=== PATIENT | female | born 1940 | race Caucasian/White ===

== ENCOUNTER → 2016-06-29 | Outpatient (CLI) | payer MEDICARE ==
[~2016-06-29] MED LIST: AMLO2.5T PO; HCTZ12.5T GT; KCL10CCR PO; LISI20TA PO; METO-272 PO
--- NOTE | 2016-06-30 13:49 | Diagnostic Imaging Report ---
Bilateral screening mammogram. The current study was also evaluated with a Computer Aided Detection (CAD) system. INDICATION: Screening. No current complaints stated on the questionnaire. COMPARISON: 01/23/15. FINDINGS: The breasts are composed of heterogeneously dense parenchyma which may decrease mammographic sensitivity. No mass, architectural distortion or suspicious cluster of calcifications seen. Allowing for technique and positional differences, no suspicious change is seen. IMPRESSION: Dense breasts with no definite change. ACR BI-RADS Category 2: Benign findings. Result letter will be mailed to the patient. Note: At least 10% of breast cancer is not imaged by mammography. Dictated by: Dictated on workstation # [id number]
== END ==
LOC: RAD 10:46
PROVIDERS: ATTEND Nurse Practitioner
DX: Z12.31 Encounter for screening mammogram for malignant neoplasm of breast (principal)
CPT/HCPCS: 77067

== ENCOUNTER 2017-06-20 10:32 | Emergency (ER) | payer MEDICARE ==
[~2017-06-20] VITALS: Ht 157.5 cm; Wt 61.2 kg
--- OUTSIDE RECORDS SUMMARY | 2017-06-20 10:37 | XMS REPORT | Continuity of Care Document ---
Author Author [facility] of [facility] of [facility] Address Unknown Phone Unavailable Allergies Active Description Code Type Severity Reaction Onset Reported/Identified Relationship to Patient Clinical Status Yes No Known Drug Allergies [id number] Drug Allergy Unknown N/A 12/25/2013 Medications There is no data. Problems Date Dx Coded Attending Type Code Diagnosis Diagnosed By 02/02/2012 V06.1 TDAP DX 02/02/2012 MAHIN MONTGOMERY DO V06.1 TDAP DX 12/12/2012 MAHIN MONTGOMERY DO V04.81 FLU SHOT 12/25/2013 DEISY GOODEN, MARKY Howell Ot V15.82 12/25/2013 MARKY OLIVAS MD Ot V58.69 12/25/2013 MARKY OLIVAS MD Ot V76.51 02/13/2014 GIOVANI MADSEN MD Ot V76.12 02/13/2015 LEONIDAS HENSON APRN Ot Z12.31 06/28/2016 LEONIDAS HENSON APRN Ot Z12.31 ENCNTR SCREEN MAMMOGRAM FOR MALIGNANT NE 07/26/2016 LEONIDAS HENSON APRN Ot Z12.31 ENCNTR SCREEN MAMMOGRAM FOR MALIGNANT NE Procedures Code Description Performed By Performed On G0008 FLU ADMINISTRATION ( MEDICARE ONLY) 12/12/2012 Results There is no data. Encounters ACCT No. Visit Date/Time Discharge Status Pt. Type Provider Facility Loc./Unit Complaint [id number] 12/12/2012 10:14:00 12/12/2012 23:59:59 CLS Outpatient MAHIN MONTGOMERY DO [id number] 02/02/2012 13:07:00 02/02/2012 23:59:59 CLS Outpatient [id number] 01/21/2014 11:13:47 ACT Document Registration [id number] 06/29/2016 10:46:00 06/29/2016 23:59:59 CLS Outpatient LEONIDAS HENSON APRN [facility] RAD SCREENING [id number] 01/23/2015 12:56:00 01/23/2015 23:59:59 CLS Outpatient LEONIDAS HENSON APRN [facility] RAD [id number] 01/21/2014 11:13:00 01/21/2014 23:59:59 CLS Outpatient GIOVANI MADSEN MD [facility] RAD [id number] 12/25/2013 08:21:00 12/25/2013 11:55:00 DIS Outpatient DEISY GOODEN, MARKY Howell [facility] [id number] 12/21/2013 08:03:00 12/21/2013 23:59:59 CLS Outpatient [id number] 01/18/2013 08:16:00 01/18/2013 23:59:59 CLS Outpatient
--- NOTE | 2017-06-20 10:57 | ED Neurological Problem ---
General Chief Complaint: Neuro-Stroke Like Symptoms Stated Complaint: CONFUSION,THINKS SHE IS HAVING A STROKE Source: patient Exam Limitations: no limitations History of Present Illness Date Seen by Provider: June 20, 2017 Time Seen by Provider: 10:53 Initial Comments 76-year-old female patient of Dr. Knight presents to ER coming by her with reports of strokelike symptoms. She was at the [facility] doing aquasize and felt fine. She finished and got ready to go home and could not remember how to get home. She did Know that her was at [employer] so she drove herself there. He then drove her here to the emergency room. She denies any unilateral weakness but states that she still cannot remember quite how to get home. She cannot recall whether or not she took her blood pressure medication this morning she does have a history of hypertension. Symptom onset 10:30. Associated Symptoms: confusion; No slurred speech, No tingling in legs/feet, No trouble walking, No vision changes, No weakness Allergies and Home Medications Allergies Coded Allergies: No Known Drug Allergies (Unverified , 12/25/13) Home Medications Amlodipine Besylate 2.5 Mg Tablet, 1 EACH PO DAILY, (Reported) Hydrochlorothiazide 12.5 Mg Cap, 25 MG GT DAILY, (Reported) Lisinopril 20 Mg Tablet, 20 MG PO DAILY, (Reported) Metoprolol Succinate 50 Mg Tab.sr.24h, 1 EACH PO DAILY, (Reported) Potassium Chloride 10 Meq Tablet.sa, 10 MEQ PO DAILY, (Reported) Patient Home Medication List Home Medication List Reviewed: Yes Review of Systems Constitutional: see HPI Eyes: No Symptoms Reported Ears, Nose, Mouth, Throat: no symptoms reported Respiratory: no symptoms reported Cardiovascular: no symptoms reported Genitourinary: no symptoms reported Musculoskeletal: no symptoms reported Skin: no symptoms reported Psychiatric/Neurological: See HPI, Cognitive Dysfunction; Denies Headache Past Bmichxa-Ureroa-Aprszq Hx Patient Social History Recent Foreign Travel: No Contact w/Someone Who Travel: No Immunizations Up To Date Date of Pneumonia Vaccine: Dec 30, 2011 Date of Influenza Vaccine: Nov 28, 2013 Physical Exam Vital Signs Vital Signs - First Documented 06/20/17 10:32 Temp 98.2 Pulse 64 Resp 18 B/P (MAP) 218/104 (142) Pulse Ox 97 O2 Delivery Room Air Capillary Refill : General Appearance: WD/WN, no apparent distress, other (Ambulatory to room 8 on her own accord without use of assistive device. Heart rate in the 60s, blood pressure 218/104.) HEENT: PERRL/EOMI, normal ENT inspection, TMs normal Neck: non-tender, full range of motion Respiratory: normal breath sounds, no respiratory distress, no accessory muscle use Cardiovascular: regular rate, rhythm, no murmur Gastrointestinal: normal bowel sounds, non tender, soft Extremities: normal range of motion, non-tender Neurologic/Psychiatric: alert, normal mood/affect, other (She knows where she is at, she knows her name and her 's name, knows that she has 3 kids. She still cannot recall how to get home, she does not know the president, the year, or the month.) Motor/Sensory: no motor deficit, no sensory deficit Skin: normal color, warm/dry Stroke Onset of Symptoms Date of Onset of Symptoms: June 20, 2017 Time of Symptom Onset: 10:30 Onset of Symptoms: Yes NIH Stroke Scale Assessment Select: Initial Level of Consciousness: 0=Alert (0), Level of Consciousness- Questions: 1=Answers one question (1), LOC Commands: 0=Performs both tasks (0), Gaze: Normal (0), Visual Kelly: 0=No visual loss (0), Facial Movement (Facial Paresis): 0=Normal symmetrical mnt (0), Motor Function-Arms Right: 0=No drift (0 ), Motor Function-Arms Left: 0=No drift (0), Motor Function-Legs Right: 0=No drift (0), Motor Function-Legs Left: 0=No drift (0), Limb Ataxia: 0=Absent (0), Sensory: 0=Normal:no loss (0), Best Language: 0=No aphasia (0), Dysarthria: 0= Normal (0), Extinction & Inattention: 0=No abnormality (0), Total: 1 Progress/Results/Core Measures Results/Orders Lab Results Laboratory Tests Test 06/20/17 10:30 06/20/17 10:45 06/20/17 11:12 Range/Units Urine Color YELLOW Urine Clarity CLEAR Urine pH 8 5-9 Urine Specific [place] 1.010 L 1.016-1.022 Urine Protein NEGATIVE NEGATIVE Urine Glucose (UA) NEGATIVE NEGATIVE Urine Ketones NEGATIVE NEGATIVE Urine Nitrite NEGATIVE NEGATIVE Urine Bilirubin NEGATIVE NEGATIVE Urine Urobilinogen NORMAL NORMAL MG/DL Urine Leukocyte Esterase NEGATIVE NEGATIVE Urine RBC (Auto) NEGATIVE NEGATIVE Urine RBC NONE /HPF Urine WBC NONE /HPF Urine Squamous Epithelial Cells RARE /HPF Urine Crystals NONE /LPF Urine Bacteria NEGATIVE /HPF Urine Casts NONE /LPF Urine Mucus NEGATIVE /LPF Urine Culture Indicated NO White Blood Count 4.9 4.3-11.0 10^3/uL Red Blood Count 4.26 L 4.35-5.85 10^6/uL Hemoglobin 14.3 11.5-16.0 G/DL Hematocrit 41 35-52 % Mean Corpuscular Volume 97 80-99 FL Mean Corpuscular Hemoglobin 34 25-34 PG Mean Corpuscular Hemoglobin Concent 35 32-36 G/DL Red Cell Distribution Width 12.2 10.0-14.5 % Platelet Count 255 130-400 10^3/uL Mean Platelet Volume 10.1 7.4-10.4 FL Neutrophils (%) (Auto) 54 42-75 % Lymphocytes (%) (Auto) 32 12-44 % Monocytes (%) (Auto) 9 0-12 % Eosinophils (%) (Auto) 4 0-10 % Basophils (%) (Auto) 1 0-10 % Neutrophils # (Auto) 2.6 1.8-7.8 X 10^3 Lymphocytes # (Auto) 1.6 1.0-4.0 X 10^3 Monocytes # (Auto) 0.5 0.0-1.0 X 10^3 Eosinophils # (Auto) 0.2 0.0-0.3 10^3/uL Basophils # (Auto) 0.0 0.0-0.1 10^3/uL Prothrombin Time 12.3 12.2-14.7 SEC INR Comment 0.9 0.8-1.4 Activated Partial Thromboplast Time 28 24-35 SEC D-Dimer 0.57 H 0.00-0.49 UG/ML Sodium Level 142 135-145 MMOL/L Potassium Level 3.6 3.6-5.0 MMOL/L Chloride Level 105 98-107 MMOL/L Carbon Dioxide Level 28 21-32 MMOL/L Anion Gap 9 5-14 MMOL/L Blood Urea Nitrogen 13 7-18 MG/DL Creatinine 0.75 0.60-1.30 MG/DL Estimat Glomerular Filtration Rate > 60 BUN/Creatinine Ratio 17 Glucose Level 112 H 70-105 MG/DL Calcium Level 9.6 8.5-10.1 MG/DL Total Bilirubin 0.5 0.1-1.0 MG/DL Aspartate Amino Transf (AST/SGOT) 17 5-34 U/L Alanine Aminotransferase (ALT/SGPT) 10 0-55 U/L Alkaline Phosphatase 72 40-136 U/L Troponin I < 0.30 <0.30 NG/ML Total Protein 7.3 6.4-8.2 GM/DL Albumin 4.3 3.2-4.5 GM/DL Glucometer 118 H 70-110 MG/DL My Orders Orders - SHAN XIONG APRN Cbc With Automated Diff (06/20/17 10:52) Protime With Inr (06/20/17 10:52) Partial Thromboplastin Time (06/20/17 10:52) Comprehensive Metabolic Panel (06/20/17 10:52) Fibrin Degradation Products (06/20/17 10:52) Troponin I (06/20/17 10:52) Ua Culture If Indicated (06/20/17 10:52) Chest 1 View, Ap/Pa Only (06/20/17 10:52) Ekg Tracing (06/20/17 10:52) Accucheck Stat ONCE (06/20/17 10:52) Saline Lock/Iv-Start (06/20/17 10:52) Saline Lock/Iv-Start (06/20/17 10:52) Vital Signs Stroke Patient Q15M (06/20/17 10:52) Ct Head Wo-R/O Stroke (06/20/17 10:52) O2 (06/20/17 10:52) Intake & Output 06,14,22 (06/20/17 10:52) Monitor-Rhythm Ecg Trace Only (06/20/17 10:52) Dysphagia Screening Tool (06/20/17 10:52) Post Thrombolytic Adminstratio (06/20/17 10:52) Ns (Ivpb) (Sodium C... W/Nicardipine Iv (06/20/17 11:15) Mri Brain W/O Contrast (06/20/17 11:13) Amlodipine Tablet (Norvasc Tablet) (06/20/17 11:30) Lisinopril Tablet (Zestril Tablet) (06/20/17 11:30) Aspirin Enteric Coated Tablet (Ecotrin T (06/20/17 12:30) Spironolactone Tablet (Aldactone Tablet) (06/20/17 12:45) Clonidine Tablet (Catapres Tablet) (06/20/17 14:00) Medications Given in ED Current Medications Medications Dose Ordered Sig/Felipe Route Start Time Stop Time Status Last Admin Dose Admin Amlodipine Besylate 5 mg ONCE ONCE PO 06/20/17 11:30 06/20/17 11:31 DC 06/20/17 11:31 5 MG Aspirin 81 mg ONCE ONCE PO 06/20/17 12:30 06/20/17 12:31 DC 06/20/17 12:57 81 MG Clonidine HCl 0.1 mg ONCE ONCE PO 06/20/17 14:00 06/20/17 14:01 DC 06/20/17 13:57 0.1 MG Lisinopril 20 mg ONCE ONCE PO 06/20/17 11:30 06/20/17 11:31 DC 06/20/17 11:35 20 MG Spironolactone 25 mg ONCE ONCE PO 06/20/17 12:45 06/20/17 12:46 DC 06/20/17 12:57 25 MG Vital Signs/I&O 06/20/17 06/20/17 06/20/17 06/20/17 10:32 11:15 12:14 13:00 Temp 98.2 Pulse 64 53 51 51 Resp 18 18 18 18 B/P (MAP) 218/104 (142) 212/92 146/93 167/81 Pulse Ox 97 97 100 97 O2 Delivery Room Air 06/20/17 06/20/17 14:17 14:45 Pulse 46 47 Resp 18 18 B/P (MAP) 168/75 173/82 Pulse Ox 96 97 O2 Delivery Room Air Progress Progress Note : Progress Note 1057-upon my initial exam she scores a 1 on the NIH and that is for answering only one question correctly on level of consciousness commands. She knows her age but not the month. Blood pressure 218/104. Cardene drip ordered 1107- upon return from CT her blood pressure is down to 145/97. This is without any treatment from us. The Cardene drip has not yet been started. 1112- patient now states that she remembers how to get home, she does know who the president is, she does not know the year or the month however. 1125- or the year but she does know the president. Her blood pressure is back up to 210/99. I'll give her dose of Norvasc and lisinopril, normally she takes Norvasc 2.5 mg every morning, lisinopril 20 mg every morning, HCTZ as well. She does not believe she took them this morning. She is going to MRI now. Her NIH stroke scale remains at 1. If she is still inadequately controlled on her hypertension upon return from MRI will start the Cardene drip 1207- upon return to ER from MRI her NIH stroke scale is a 0, she now knows the president the month and the year. Her blood pressure is 146/93, heart rate 60 sinus. 1245- NIH remains 0. Blood pressure up to 186/75. I'll give her her daily dose of spironolactone 25 mg here. 1355-pressure 177/81, heart rate 49 sinus. 0.1 mg clonidine ordered. I'm a bit hesitant to give her daily dose of metoprolol given the bradycardia. In summary , she has received 25 mg of HCTZ here, 20 mg of lisinopril here, Norvasc 5 mg here and now clonidine. This is the same as her home regimen every morning with the exception of her home dose metoprolol being replaced with 0.1 mg of clonidine. 1441- heart rate 47-55 sinus, blood pressure 168-171 systolic. NIH remains 0. We will discharge to home. Initial ECG Rate: 55 Initial ECG Rhythm: S.Ran Initial ECG Intervals: Normal Diagnostic Imaging Diagonstic Imaging: Xray, CT Comments NAME: BEATRICE BILLINGS [facility] REC#: [id number] PT STATUS: REG ER : 1940 PHYSICIAN: SHAN XIONG APRN ADMIT DATE: 06/20/17/ER Draft Date of Exam:06/20/17 CT HEAD WO-R/O STROKE EXAM: CT HEAD WO-R/O STROKE INDICATION: Confusion. Stroke. COMPARISON: None. FINDINGS: No CT evidence of acute infarction. No intracranial hemorrhage, mass effect, hydrocephalus or extra-axial fluid collections. Intracranial vascular calcifications. Cpze-do-vutifozg leukoaraiosis. Generalized cerebral and cerebellar parenchymal volume loss is age appropriate. Osseous structures are intact. The visualized paranasal sinuses and mastoids are clear. IMPRESSION: No acute intracranial CT findings. Findings discussed with Shan Xiong APRN at 11:10 a.m. on 06/20/2017. Dictated on workstation # [id number] Dict: 06/20/17 1101 Trans: 06/20/17 1111 AIG [id number] Interpreted by: AUDRA AGUIRRE MD Electronically signed by: NAME: BEATRICE BILLINGS [facility] REC#: [id number] PT STATUS: REG ER : 1940 PHYSICIAN: SHAN XIONG APRN ADMIT DATE: 06/20/17/ER Draft Date of Exam:06/20/17 CHEST 1 VIEW, AP/PA ONLY Procedure: Portable AP chest at 1057. Indication: Some memory loss. Comparison: There are no prior studies available for comparison. Findings: Heart size is within normal limits. The lungs are clear. There is no evidence for failure, pneumonia or for pleural effusion. Mediastinum is not widened. The osseous structures are intact. Impression: There is no evidence for active disease. Dictated on workstation # [id number] Dict: 06/20/17 1107 Trans: 06/20/17 1118 CVB [id number] Interpreted by: WHIT METZGER MD Electronically signed by: NAME: BEATRICE BILLINGS [facility] REC#: [id number] PT STATUS: REG ER : 1940 PHYSICIAN: SHAN XIONG APRN ADMIT DATE: 06/20/17/ER Draft Date of Exam:06/20/17 MRI BRAIN W/O CONTRAST PROCEDURE: MR imaging of the brain without contrast. TECHNIQUE: Multiplanar, multisequence MR imaging of the brain was performed without contrast. INDICATION: Stroke, confusion. COMPARISON: There are no previous MRI examinations available for comparison. The CT head exam performed prior to this study failed to show any sign of an acute intracranial abnormality. On the diffusion series of this exam there is no abnormal signal arising from the brain to suggest an area of acute ischemia. There is no mass, shift to midline or hemorrhage to indicate an acute abnormality. The ventricles are not abnormally dilated. There are focal and diffuse areas of increased signal throughout the periventricular white matter bilaterally on the FLAIR series. These findings are nonspecific but may be related to insufflation from microvascular ischemia. There is also a prominent area of increased signal near the garcia-white junction of the left parietal lobe posteriorly. This too is probably secondary to insufflation from prior infarct. There is mild cortical atrophy present. The degree of atrophy is consistent with the patient's age. The sella is not enlarged and the expected carotid flow voids are evident bilaterally. The sinuses are generally clear. The orbits are symmetrical and within normal limits. The 7th and 8th nerve complexes are unremarkable. There does appear to be a small sebaceous cyst in the scalp overlying the left parietal bone near the vertex of the skull. IMPRESSION: 1. There is no evidence for acute intracranial abnormality. Particularly, there is no abnormal signal arising from the brain on the diffusion series to indicate area of acute ischemia. 2. There are senescent changes including cortical atrophy and periventricular insufflation. 3. These results were discussed with Shan Xiong APRN. Dictated on workstation # [id number] Dict: 06/20/17 1203 Trans: 06/20/17 1223 CVB [id number] Interpreted by: WHIT METZGER MD Electronically signed by: Departure Communication (Admissions) 1232- discussed discharge to home with observation by versus admission to hospital with observation here with hospitalist Dr. Blake.. Given that she is back to baseline and hypertension is controlled we will observe her here in the emergency room for another hour then he would recommend discharge to home if she remains at baseline with controlled hypertension Impression Primary Impression: Hypertensive emergency Additional Impression: TIA (transient ischemic attack) Disposition: 01 HOME, SELF-CARE Condition: Stable Departure-Patient Inst. Decision time for Depature: 12:33 Referrals: GIOVANI KNIGHT MD (PCP/Family) Primary Care Physician Patient Instructions: Malignant Hypertension Add. Discharge Instructions: 1. Return to ER for any recurrent confusion 2. Check your blood pressure 2 more times today. Youre allowed to take any evening medications that you need, take a baby aspirin daily if you do not already. Call Dr. Knight today to make an appointment to be seen this week for follow-up. All discharge instructions reviewed with patient and/or family. Voiced understanding. Copy Copies To 1: GIOVANI KNIGHT MD, PETER J APRN June 20, 2017 10:57
[2017-06-20 11:01] LABS: BASOPHILS % (AUTO) 1 % (0-10); EOSINOPHILS # (AUTO) 0.2 10^3/uL (0.0-0.3); EOSINOPHILS % (AUTO) 4 % (0-10); HEMATOCRIT 41 % (35-52); HEMOGLOBIN 14.3 G/DL (11.5-16.0); LYMPHOCYTES # (AUTO) 1.6 X 10^3 (1.0-4.0); LYMPHOCYTES % (AUTO) 32 % (12-44); MEAN CORPUSCULAR HEMOGLOBIN 34 PG (25-34); MEAN CORPUSCULAR HGB CONC 35 G/DL (32-36); MEAN CORPUSCULAR VOLUME 97 FL (80-99); MEAN PLATELET VOLUME 10.1 FL (7.4-10.4); MONOCYTES # (AUTO) 0.5 X 10^3 (0.0-1.0); MONOCYTES % (AUTO) 9 % (0-12); NEUTROPHILS # (AUTO) 2.6 X 10^3 (1.8-7.8); NEUTROPHILS % (AUTO) 54 % (42-75); PLATELET COUNT 255 10^3/uL (130-400); RED BLOOD COUNT 4.26 10^6/uL (4.35-5.85); RED CELL DISTRIBUTION WIDTH 12.2 % (10.0-14.5); WHITE BLOOD COUNT 4.9 10^3/uL (4.3-11.0)
[2017-06-20 11:04] LABS: BILIRUBIN,URINE NEGATIVE (NEGATIVE); CLARITY,URINE CLEAR; COLOR,URINE YELLOW; GLUCOSE, URINE (UA) NEGATIVE (NEGATIVE); KETONES,URINE NEGATIVE (NEGATIVE); LEUKOCYTE ESTERASE ,URINE NEGATIVE (NEGATIVE); NITRITE,URINE NEGATIVE (NEGATIVE); PH,URINE 8 (5-9); PROTEIN,URINE NEGATIVE (NEGATIVE); UROBILINOGEN,URINE NORMAL (NORMAL)
[2017-06-20 11:08] LABS: INR 0.9 (0.8-1.4); PROTHROMBIN TIME PATIENT 12.3 SEC (12.2-14.7)
[2017-06-20 11:11] LABS: FIBRIN DEGRADATION PRODUCTS 0.57 UG/ML (0.00-0.49)
--- NOTE | 2017-06-20 11:11 | Diagnostic Imaging Report ---
EXAM: CT HEAD WO-R/O STROKE INDICATION: Confusion. Stroke. COMPARISON: None. FINDINGS: No CT evidence of acute infarction. No intracranial hemorrhage, mass effect, hydrocephalus or extra-axial fluid collections. Intracranial vascular calcifications. Euzs-lo-mpjwcced leukoaraiosis. Generalized cerebral and cerebellar parenchymal volume loss is age appropriate. Osseous structures are intact. The visualized paranasal sinuses and mastoids are clear. IMPRESSION: No acute intracranial CT findings. Findings discussed with Venkat Xiong APRN at 11:10 a.m. on 06/20/2017. Dictated by: Dictated on workstation # [id number]
[2017-06-20 11:13] LABS: ALANINE AMINOTRANSFERASE 10 U/L (0-55); ALBUMIN 4.3 GM/DL (3.2-4.5); ALKALINE PHOSPHATASE 72 U/L (40-136); BILIRUBIN,TOTAL 0.5 MG/DL (0.1-1.0); BUN/CREATININE RATIO 17; CALCIUM 9.6 MG/DL (8.5-10.1); CARBON DIOXIDE 28 MMOL/L (21-32); CHLORIDE 105 MMOL/L (98-107); CREATININE SERUM 0.75 MG/DL (0.60-1.30); GFR ESTIMATED > 60; GLUCOSE 112 MG/DL (70-105); POTASSIUM 3.6 MMOL/L (3.6-5.0); SODIUM 142 MMOL/L (135-145); TOTAL PROTEIN 7.3 GM/DL (6.4-8.2)
[2017-06-20 11:15] VITALS: BP 212/92
[2017-06-20] MEDS ORDERED: niCARdipine IV 50 MG in NS (IVPB) 230 ML IV SCH (11:15)
--- NOTE | 2017-06-20 11:18 | Diagnostic Imaging Report ---
Procedure: Portable AP chest at 1057. Indication: Some memory loss. Comparison: There are no prior studies available for comparison. Findings: Heart size is within normal limits. The lungs are clear. There is no evidence for failure, pneumonia or for pleural effusion. Mediastinum is not widened. The osseous structures are intact. Impression: There is no evidence for active disease. Dictated by: Dictated on workstation # [id number]
[2017-06-20 11:22] LABS: BACTERIA,URINE NEGATIVE /HPF; SQUAMOUS EPITHELIAL CELL,UR RARE /HPF
[2017-06-20] MEDS ORDERED: lisINopril 20 MG (PRINIVIL) TABLET PO ONE (11:30)
[2017-06-20] MEDS ORDERED: amLODIPine 5 MG (NORVASC) TAB PO ONE (11:30)
[2017-06-20 12:14] VITALS: BP 146/93
--- NOTE | 2017-06-20 12:23 | Diagnostic Imaging Report ---
PROCEDURE: MR imaging of the brain without contrast. TECHNIQUE: Multiplanar, multisequence MR imaging of the brain was performed without contrast. INDICATION: Stroke, confusion. COMPARISON: There are no previous MRI examinations available for comparison. The CT head exam performed prior to this study failed to show any sign of an acute intracranial abnormality. On the diffusion series of this exam there is no abnormal signal arising from the brain to suggest an area of acute ischemia. There is no mass, shift to midline or hemorrhage to indicate an acute abnormality. The ventricles are not abnormally dilated. There are focal and diffuse areas of increased signal throughout the periventricular white matter bilaterally on the FLAIR series. These findings are nonspecific but may be related to insufflation from microvascular ischemia. There is also a prominent area of increased signal near the garcia-white junction of the left parietal lobe posteriorly. This too is probably secondary to insufflation from prior infarct. There is mild cortical atrophy present. The degree of atrophy is consistent with the patient's age. The sella is not enlarged and the expected carotid flow voids are evident bilaterally. The sinuses are generally clear. The orbits are symmetrical and within normal limits. The 7th and 8th nerve complexes are unremarkable. There does appear to be a small sebaceous cyst in the scalp overlying the left parietal bone near the vertex of the skull. IMPRESSION: 1. There is no evidence for acute intracranial abnormality. In particular, there is no abnormal signal arising from the brain on the diffusion series to indicate area of acute ischemia. 2. There are senescent changes including cortical atrophy and periventricular encephalomalacia. 3. These results were discussed with Venkat Xiong APRN. Dictated by: Dictated on workstation # [id number]
[2017-06-20] MEDS ORDERED: ASPIRIN E.C. 81 MG (ECOTRIN) TAB PO ONE (12:30)
[2017-06-20] MEDS ORDERED: SPIRONOLACTONE 25 MG (ALDACTONE) TAB PO ONE (12:45)
[2017-06-20 13:00] VITALS: BP 167/81
[2017-06-20] MEDS ORDERED: cloNIDine 0.1 MG (CATAPRES) TAB PO ONE (14:00)
[2017-06-20 14:17] VITALS: BP 168/75
[2017-06-20 14:45] VITALS: BP 173/82
== END 2017-06-20 14:50 | disposition home or self-care (01) ==
LOC: EDUNIT# 10:32 → ER 10:34
DX: I16.1 Hypertensive emergency (principal); G45.9 Transient cerebral ischemic attack, unspecified; I10 Essential (primary) hypertension
CPT/HCPCS: 36415; 70450; 70551; 71045; 80053; 81000; 82962; 84484; 85025; 85379; 85610; 85730; 93005; 93041

== ENCOUNTER → 2017-06-30 | Outpatient (CLI) | payer MEDICARE ==
--- NOTE | 2017-06-30 18:37 | Diagnostic Imaging Report ---
INDICATION: Routine screening. COMPARISON: Comparison is made with prior exam from 06/29/2016 and 01/23/2015. TECHNIQUE: 2D and 3D bilateral screening mammography was performed with computer-aided detection (CAD) system. FINDINGS: Both breasts remain heterogeneously dense, limiting the sensitivity of mammography. The parenchymal pattern is stable. No dominant mass or malignant appearing microcalcifications are seen. The axillae are unremarkable. There are benign calcifications. IMPRESSION: No mammographic features suspicious for malignancy are identified. ACR BI-RADS Category 2: Benign findings. Result letter will be mailed to the patient. Note: At least 10% of breast cancer is not imaged by mammography. Dictated by: Dictated on workstation # [id number]
== END ==
LOC: RAD 14:45
PROVIDERS: ATTEND Nurse Practitioner
DX: Z12.31 Encounter for screening mammogram for malignant neoplasm of breast (principal)
CPT/HCPCS: 77067

== ENCOUNTER → 2018-07-03 | Outpatient (CLI) | payer MEDICARE ==
--- NOTE | 2018-07-04 14:27 | Diagnostic Imaging Report ---
INDICATION: Routine screening. COMPARISON: 06/30/2017 and 06/29/2016. TECHNIQUE: 2D and 3D bilateral screening mammography was performed with CAD. FINDINGS: Both breasts are heterogeneously dense, limiting the sensitivity of mammography. The parenchymal pattern is stable. No mass or malignant appearing microcalcifications are seen. The axillae are unremarkable. IMPRESSION: No mammographic features suspicious for malignancy are identified. ACR BI-RADS Category 1: Negative. Result letter will be mailed to the patient. Note: At least 10% of breast cancer is not imaged by mammography. Dictated by: Dictated on workstation # [id number]
== END ==
LOC: RAD 14:09
PROVIDERS: ATTEND Physician Assistant
DX: Z12.31 Encounter for screening mammogram for malignant neoplasm of breast (principal)
CPT/HCPCS: 77067

== ENCOUNTER → 2019-11-20 | Outpatient (CLI) | payer MEDICARE | LOC: RAD 13:15 | PROVIDERS: ATTEND Internal Medicine | DX: Z12.31 Encounter for screening mammogram for malignant neoplasm of breast (principal) ==

== ENCOUNTER → 2020-07-11 | Outpatient (CLI) | payer MEDICARE ==
--- NOTE | 2020-07-15 13:38 | Diagnostic Imaging Report ---
INDICATION: Routine screening. COMPARISON: 07/03/2018 and 06/30/2017. TECHNIQUE: 2D and 3D bilateral screening mammography was performed with CAD. FINDINGS: Both breasts are heterogeneously dense, limiting the sensitivity of mammography. No mass or malignant appearing microcalcifications are seen. The axillae are unremarkable. IMPRESSION: No mammographic features suspicious for malignancy are identified. ACR BI-RADS Category 1: Negative. Result letter will be mailed to the patient. Note: At least 10% of breast cancer is not imaged by mammography. Dictated by: Dictated on workstation # [id number]
== END ==
LOC: RAD 09:00
PROVIDERS: ATTEND Nurse Practitioner Family
DX: Z12.31 Encounter for screening mammogram for malignant neoplasm of breast (principal)
CPT/HCPCS: 77063; 77067

== ENCOUNTER → 2021-07-21 | Outpatient (CLI) | payer MEDICARE ==
--- NOTE | 2021-07-21 13:38 | Diagnostic Imaging Report ---
INDICATION: Routine screening. COMPARISON: 07/11/2020 and 07/03/2018. TECHNIQUE: 2D and 3D bilateral screening mammography was performed with CAD. FINDINGS: Both breasts are heterogeneously dense, limiting the sensitivity of mammography. No mass or malignant-appearing microcalcifications are seen. The axillae are unremarkable. IMPRESSION: No mammographic features suspicious for malignancy are identified. ACR BI-RADS Category 1: Negative. Result letter will be mailed to the patient. Note: At least 10% of breast cancer is not imaged by mammography. Dictated by: Dictated on workstation # [id number]
== END ==
LOC: RAD 09:45
PROVIDERS: ATTEND Physician Assistant
DX: Z12.31 Encounter for screening mammogram for malignant neoplasm of breast (principal)
CPT/HCPCS: 77063; 77067

== ENCOUNTER → 2023-01-03 | Outpatient (CLI) | payer MEDICARE ==
--- NOTE | 2023-01-04 15:59 | Diagnostic Imaging Report ---
INDICATION: Routine screening. COMPARISON: 07/21/2021 and 07/11/2020. TECHNIQUE: 2D and 3D bilateral screening mammography was performed with CAD. FINDINGS: Both breasts are heterogeneously dense, limiting the sensitivity of mammography. The parenchymal pattern is stable. No mass or malignant-appearing microcalcifications are identified. The axillae are unremarkable. IMPRESSION: No mammographic features suspicious for malignancy are identified. ACR BI-RADS Category 1: Negative. Result letter will be mailed to the patient. Note: At least 10% of breast cancer is not imaged by mammography. Dictated by: Dictated on workstation # [id number]
== END ==
LOC: RAD 15:00
PROVIDERS: ATTEND Internal Medicine
DX: Z12.31 Encounter for screening mammogram for malignant neoplasm of breast (principal)
CPT/HCPCS: 77063; 77067